=== PATIENT | male | born 1940 | race African-American/Black ===

== ENCOUNTER 2020-03-25 20:49 | Inpatient (IN) | payer MEDICARE ==
[~2020-03-25] VITALS: Ht 188 cm; Wt 54.0 kg
[2020-03-25] MEDS: DEXT 5%/LACTATED RINGERS 1,000 ML IV SCH (02:00)
[~2020-03-25 20:49] MED LIST: AMLO5TAB4 PO; CARV12.545 PO; DOCU-150 PO; FERR-63 PO; LEVO500T2 PO; OMEP20TA2 PO; SUCR1TAB30 PO; TAMS-11 PO; TAMS0.4C31
[2020-03-25 21:45] LABS: BASOPHILS % 0.5 % (0.0-2.0); EOSINOPHILS % 3.1 % (0.0-5.0); HEMATOCRIT. 43.2 % (42.0-52.0); HEMOGLOBIN. 14.1 g/dL (14.0-18.0); LYMPHOCYTES % 30.2 % (20.0-50.0); MEAN CORPUSCULAR HEMOGLOBIN 30.4 pg (28.0-32.0); MEAN PLATELET VOLUME 11.4 fl (7.4-10.4); MONOCYTES % 9.7 % (2.0-8.0); NEUTROPHILS % 56.5 % (40.0-76.0); PLATELET 118 x1000/uL (130-400); RED BLOOD CELL COUNT 4.65 mill/uL (4.7-6.1)
[2020-03-25 21:51] LABS: CHLORIDE 104 mEq/L (98-107)
[2020-03-25 21:55] LABS: ETHANOL BLOOD 188 mg/dL
[2020-03-25] MEDS ORDERED: LEVETIRACETAM 1000MG/100ML 100 ML IV ONE (22:30)
[2020-03-25] MEDS ORDERED: TETANUS, DIPHTHERIA, PERTUSSIS VAC/PF 0.5ML (>7YR OLD) IM ONE (22:30)
[2020-03-25 22:35] LABS: CLARITY URINE CLOUDY (CLEAR); COLOR URINE YELLOW (YELLOW); KETONES URINE NEGATIVE (NEGATIVE); LEUKOCYTE ESTERASE URINE 1+ (NEGATIVE); NITRITE URINE NEGATIVE (NEGATIVE); OCCULT BLOOD URINE NEGATIVE (NEGATIVE); PROTEIN URINE NEGATIVE (NEGATIVE); SPECIFIC GRAVITY URINE 1.016 (1.005-1.030); UROBILINOGEN URINE 0.2 E.U./dL (0.2-1.0)
[2020-03-25 22:41] LABS: PROTHROMBIN TIME 10.9 sec (9.6-11.0)
[2020-03-25 22:51] LABS: *AMPHETAMINES SCREEN URINE NEGATIVE (NEGATIVE); *BARBITURATES SCREEN URINE NEGATIVE (NEGATIVE); *BENZODIAZEPINES SCREEN URINE NEGATIVE (NEGATIVE)
[2020-03-25 22:52] LABS: *COCAINE SCREEN URINE NEGATIVE (NEGATIVE); CANNABINOID URINE SCREEN PRESUMTIVE POSITIVE (NEGATIVE); METHADONE URINE SCREEN NEGATIVE (NEGATIVE); OPIATES URINE SCREEN NEGATIVE (NEGATIVE); PHENCYCLIDINE URINE SCREEN NEGATIVE (NEGATIVE)
[2020-03-25] MEDS ORDERED: CEFTRIAXONE 1 G PREMIX 50 ML IV ONE (23:00)
[2020-03-25] MEDS ORDERED: ONDANSETRON HCL 4MG/2ML INJ IV PRN (23:00)
[2020-03-25] MEDS ORDERED: NICARDIPINE 100 MG in SODIUM CHLORIDE 0.9% 60 ML IV PRN (23:30)
[2020-03-26] VITALS (75 sets, daily range): BP systolic 104–150; BP diastolic 60–104
[2020-03-26] MEDS ORDERED: NICARDIPINE 100 MG in SODIUM CHLORIDE 0.9% 60 ML IV PRN ×2
[2020-03-26] MEDS: DEXT 5%/LACTATED RINGERS 1,000 ML IV SCH ×2 (02:00→20:45)
[2020-03-26 05:54] LABS: CHLORIDE 107 mEq/L (98-107)
[2020-03-26 06:00] LABS: BASOPHILS % 0.4 % (0.0-2.0); EOSINOPHILS % 0.9 % (0.0-5.0); HEMATOCRIT. 49.5 % (42.0-52.0); HEMOGLOBIN. 16.1 g/dL (14.0-18.0); LYMPHOCYTES % 12.4 % (20.0-50.0); MEAN CORPUSCULAR HEMOGLOBIN 30.3 pg (28.0-32.0); MEAN CORPUSCULAR VOLUME 93.2 fL (80.0-94.0); MEAN PLATELET VOLUME 11.7 fl (7.4-10.4); MONOCYTES % 10.1 % (2.0-8.0); NEUTROPHILS % 76.2 % (40.0-76.0); PLATELET 135 x1000/uL (130-400); RED BLOOD CELL COUNT 5.31 mill/uL (4.7-6.1)
[2020-03-26] MEDS ORDERED: CITA40TA22 MT (08:24)
[2020-03-26] MEDS ORDERED: ATOR10TA69 MT (08:24)
[2020-03-26] MEDS ORDERED: ASPI-986 MT (08:24)
[2020-03-26] MEDS ORDERED: LATA2.5D2 EACHEYE (08:24)
[2020-03-26] MEDS ORDERED: ASPI-1158 MT (08:24)
[2020-03-26] MEDS: ACETAMINOPHEN 325MG TABLET PO PRN ×2 (10:50→20:05)
[2020-03-26] MEDS: LEVETIRACETAM 500MG PREMIX 100 ML IV SCH ×2 (12:00→20:05)
[2020-03-26] MEDS: THIAMINE HCL 100MG TABLET PO SCH (12:00)
[2020-03-26] MEDS ORDERED: POTASSIUM CHLORIDE 20MEQ TABLET SR PO SCH (12:00)
[2020-03-26] MEDS: MORPHINE SULFATE 2 MG/ML CPJ (NOT FOR IM USE) IV PRN (17:00)
[2020-03-26] MEDS ORDERED: DIPHENHYDRAMINE 50MG/ML VIAL IV NR (17:00)
[2020-03-26] MEDS ORDERED: IPRATROPIUM/ALBUTEROL 0.5-3(2.5)MG/3ML NEB HHN PRN (19:00)
[2020-03-26] MEDS: CARVEDILOL 6.25 MG TABLET PO SCH (20:04)
[2020-03-26] MEDS: HYDRALAZINE 20MG/ML VIAL IV PRN (20:35)
[2020-03-27] VITALS (44 sets, daily range): BP systolic 95–177; BP diastolic 62–112
[2020-03-27] MEDS: MORPHINE SULFATE 2 MG/ML CPJ (NOT FOR IM USE) IV PRN ×2 (01:07→15:10)
[2020-03-27] MEDS: ACETAMINOPHEN 325MG TABLET PO PRN (04:55)
[2020-03-27 05:37] LABS: BASOPHILS % 0.3 % (0.0-2.0); EOSINOPHILS % 0.2 % (0.0-5.0); HEMOGLOBIN. 15.3 g/dL (14.0-18.0); LYMPHOCYTES % 9.9 % (20.0-50.0); MEAN CORPUSCULAR HEMOGLOBIN 30.8 pg (28.0-32.0); MEAN CORPUSCULAR VOLUME 92.5 fL (80.0-94.0); MEAN PLATELET VOLUME 11.2 fl (7.4-10.4); MONOCYTES % 8.4 % (2.0-8.0); NEUTROPHILS % 81.2 % (40.0-76.0); PLATELET 123 x1000/uL (130-400); RED BLOOD CELL COUNT 4.98 mill/uL (4.7-6.1)
[2020-03-27 06:02] LABS: CHLORIDE 108 mEq/L (98-107)
[2020-03-27] MEDS ORDERED: LEVETIRACETAM 500MG PREMIX 100 ML IV SCH (09:00)
[2020-03-27] MEDS: CARVEDILOL 6.25 MG TABLET PO SCH (09:07)
[2020-03-27] MEDS: THIAMINE HCL 100MG TABLET PO SCH (09:08)
[2020-03-27] MEDS: DEXT 5%/LACTATED RINGERS 1,000 ML IV SCH (09:18)
[2020-03-27] MEDS: HYDRALAZINE 20MG/ML VIAL IV PRN ×2 (12:31→18:52)
[2020-03-27] MEDS ORDERED: LOSARTAN POTASSIUM 50 MG TABLET PO SCH (13:15)
[2020-03-27] MEDS: CARVEDILOL 12.5MG TABLET PO SCH (20:26)
[2020-03-28] VITALS: BP 133/80
[2020-03-28 04:00] VITALS: BP 146/94
[2020-03-28] MEDS: MORPHINE SULFATE 2 MG/ML CPJ (NOT FOR IM USE) IV PRN (04:27)
[2020-03-28 08:00] VITALS: BP 148/98
[2020-03-28] MEDS ORDERED: LOSARTAN POTASSIUM 100 MG TABLET PO SCH (09:00)
[2020-03-28] MEDS: CARVEDILOL 12.5MG TABLET PO SCH (09:18)
[2020-03-28] MEDS: THIAMINE HCL 100MG TABLET PO SCH (09:18)
[2020-03-28 09:58] LABS: BASOPHILS % 0.5 % (0.0-2.0); EOSINOPHILS % 0.3 % (0.0-5.0); HEMATOCRIT. 44.8 % (42.0-52.0); HEMOGLOBIN. 14.7 g/dL (14.0-18.0); MEAN CORPUSCULAR HEMOGLOBIN 30.3 pg (28.0-32.0); MEAN CORPUSCULAR VOLUME 92.2 fL (80.0-94.0); MEAN PLATELET VOLUME 11.3 fl (7.4-10.4); MONOCYTES % 8.2 % (2.0-8.0); PLATELET 126 x1000/uL (130-400); RED BLOOD CELL COUNT 4.86 mill/uL (4.7-6.1); RED CELL DISTRIBUTION WIDTH 16.1 % (11.6-14.6)
[2020-03-28 10:06] LABS: CHLORIDE 106 mEq/L (98-107)
[2020-03-28 12:00] VITALS: BP 160/104
[2020-03-28 14:46] VITALS: BP 160/104
[2020-03-28] MEDS: HYDRALAZINE 20MG/ML VIAL IV PRN (17:11)
== END 2020-03-28 17:38 | disposition home or self-care (01) | DRG 82 ==
LOC: ER 21:05 → MICUNO 22:54 → ENRESERV 03-26 00:03 → MICUNO 03-26 18:40 → 8WST 03-27 21:40
PROVIDERS: ADMIT Ophthalmology; ATTEND Ophthalmology
PROC: 4A00X4Z Measurement of Central Nervous Electrical Activity, External Approach (ICD-10-PCS; principal; 2020-03-27)
DX: S06.5X9A Traumatic subdural hemorrhage with loss of consciousness of unspecified duration, initial encounter (principal); N17.0 Acute kidney failure with tubular necrosis; S06.6X9A Traumatic subarachnoid hemorrhage with loss of consciousness of unspecified duration, initial encounter; J84.10 Pulmonary fibrosis, unspecified; J44.9 Chronic obstructive pulmonary disease, unspecified; I10 Essential (primary) hypertension; E87.6 Hypokalemia; Y90.6 Blood alcohol level of 120-199 mg/100 ml; W05.0XXA Fall from non-moving wheelchair, initial encounter; K21.9 Gastro-esophageal reflux disease without esophagitis; F12.10 Cannabis abuse, uncomplicated; F10.229 Alcohol dependence with intoxication, unspecified; F17.210 Nicotine dependence, cigarettes, uncomplicated; I49.3 Ventricular premature depolarization; R06.4 Hyperventilation; R40.2410 Glasgow coma scale score 13-15, unspecified time; X58.XXXA Exposure to other specified factors, initial encounter; Y93.89 Activity, other specified; Z86.73 Personal history of transient ischemic attack (TIA), and cerebral infarction without residual deficits; Z98.2 Presence of cerebrospinal fluid drainage device; Y92.89 Other specified places as the place of occurrence of the external cause; Y99.8 Other external cause status; Z79.899 Other long term (current) drug therapy
CPT/HCPCS: 36415; 71045; 80053; 80305; 80320; 81003; 82140; 83735; 84484; 85025; 86850; 86900; 90715; 93005; 93306; 93880; 95816; 96365; 97162; 99291; J0360; J0696; J1953; J2270; J2405; J3490; J7050; G0480

== ENCOUNTER 2020-10-28 13:53 | Emergency (ER) | payer MEDICARE ==
[~2020-10-28] VITALS: Ht 182.9 cm; Wt 73.0 kg
[~2020-10-28 13:53] MED LIST changes: +ASPI-1406 MT; +ASPI-986 MT; +ATOR10TA69 MT; +CITA40TA22 MT; +LATA2.5D14 EACHEYE
[2020-10-28] MEDS ORDERED: HYDROCODONE/ACETAMINOPHEN 5/325MG TABLET PO STA (14:26)
[2020-10-28 15:19] LABS: HEMATOCRIT. 46.1 % (42.0-52.0); HEMOGLOBIN. 15.4 g/dL (14.0-18.0); MEAN CORPUSCULAR HEMOGLOBIN 30.6 pg (28.0-32.0); MEAN CORPUSCULAR VOLUME 91.4 fL (80.0-94.0); PLATELET 125 x1000/uL (130-400); RED BLOOD CELL COUNT 5.05 mill/uL (4.7-6.1); RED CELL DISTRIBUTION WIDTH 16.2 % (11.6-14.6)
[2020-10-28 15:27] LABS: CHLORIDE 101 mEq/L (98-107)
[2020-10-28 15:28] LABS: INR 1.2; PROTHROMBIN TIME 12.4 sec (9.6-11.0)
[2020-10-28] MEDS ORDERED: POTASSIUM CHLORIDE 20MEQ TABLET SR PO NR (15:45)
[2020-10-28 16:08] LABS: PLATELET ESTIMATE DECREAS
[2020-10-28] MEDS ORDERED: SODIUM CHLORIDE 0.9% 1,000 ML IV ONE ×2 (16:15→17:30)
[2020-10-28] MEDS ORDERED: PIPERACILLIN/TAZOBACTAM 3.375GM/50ML PREMIX IV ONE (16:15)
[2020-10-28 16:46] LABS: CLARITY URINE CLEAR (CLEAR); COLOR URINE YELLOW (YELLOW); KETONES URINE NEGATIVE (NEGATIVE); LEUKOCYTE ESTERASE URINE TRACE (NEGATIVE); NITRITE URINE NEGATIVE (NEGATIVE); OCCULT BLOOD URINE 1+ (NEGATIVE); PH URINE 5.5 (4.5-8.0); PROTEIN URINE 2+ (NEGATIVE); SPECIFIC GRAVITY URINE 1.023 (1.005-1.030); UROBILINOGEN URINE 0.2 E.U./dL (0.2-1.0)
[2020-10-28] MEDS ORDERED: VANCOMYCIN 1 G PREMIX 200 ML IV NR (17:00)
[2020-10-28] MEDS ORDERED: PIPERACILLIN/TAZ 3.375G PREMIX 50 ML IV NR (18:00)
[2020-10-28 20:00] VITALS: BP 161/114
== END 2020-10-28 22:28 | disposition short-term general hospital (02) ==
LOC: ER 13:53
DX: J18.9 Pneumonia, unspecified organism (principal); M54.5 Low back pain; I10 Essential (primary) hypertension; Z86.73 Personal history of transient ischemic attack (TIA), and cerebral infarction without residual deficits; Z79.82 Long term (current) use of aspirin; Z20.822 Contact with and (suspected) exposure to COVID-19; W05.0XXA Fall from non-moving wheelchair, initial encounter; Y93.89 Activity, other specified; Y92.128 Other place in nursing home as the place of occurrence of the external cause
CPT/HCPCS: 36415; 71045; 74176; 80053; 81003; 85025; 85610; 87040; 87086; 87186; 93005; 96365; 96367; 99285; C9803; J2543; J3370; U0003